=== PATIENT | male | born 1995 | race Caucasian/White ===

== ENCOUNTER 2017-06-25 15:00 | Emergency (ER) | payer BC, OTHER ==
[~2017-06-25] VITALS: Ht 190.5 cm; Wt 81.6 kg
[~2017-06-25 15:00] MED LIST: BACTRIM DS TABL1 TA2 PO; BACTROBAN22 GM TP; IBUPROFEN PO; NO MEDICATIONS; PRILOSEC20 MG PO; TYLENOL #3 PO; ZITHROMAX PO; ZOFRAN PO
== END 2017-06-25 16:40 | disposition home or self-care (01) ==
LOC: SED 15:00
DX: J02.9 Acute pharyngitis, unspecified (principal); J06.9 Acute upper respiratory infection, unspecified; F17.210 Nicotine dependence, cigarettes, uncomplicated
CPT/HCPCS: 36415; 86308; 87651; 99284